=== PATIENT | female | born 1950 | race Caucasian/White ===

== ENCOUNTER 2018-07-13 07:17 | Outpatient (CLI) | payer MEDICARE | END 2018-07-13 07:18 | disposition home or self-care (01) | LOC: CARDIO 07:17 | DX: R06.02 Shortness of breath (principal) ==

== ENCOUNTER 2018-07-20 07:29 | Day surgery (SDC) | payer MEDICARE ==
[2018-07-13 14:27] VITALS: BMI 39.8
[2018-07-20 07:54] VITALS: RESP 20; TEMP 97.8
[2018-07-20] MEDS ORDERED: Sodium Chloride 0.9% 1,000 ML IV SCH (09:15)
[2018-07-20 09:31] VITALS: BP 133/65; PULSE 57; O2SAT 100
== END 2018-07-20 11:05 | disposition home or self-care (01) ==
LOC: ENDO 07:29
PROVIDERS: ATTEND Specialist
DX: K21.9 Gastro-esophageal reflux disease without esophagitis (principal); K29.50 Unspecified chronic gastritis without bleeding; K29.80 Duodenitis without bleeding; K44.9 Diaphragmatic hernia without obstruction or gangrene; B96.81 Helicobacter pylori [H. pylori] as the cause of diseases classified elsewhere; I10 Essential (primary) hypertension; E11.9 Type 2 diabetes mellitus without complications; Z80.0 Family history of malignant neoplasm of digestive organs; Z01.818 Encounter for other preprocedural examination
CPT/HCPCS: 43239; 88305; 88342; J7030